=== PATIENT | male | born 1930 | race Caucasian/White ===

== ENCOUNTER → 2016-11-13 | Day surgery (SDC) | payer OTHER ==
[~2016-11-13] VITALS: Ht 167.6 cm; Wt 86.2 kg
[~2016-11-13] MED LIST: ALLOPURINOL 10100 M1 PO; APAP650 PO; ASPIR 8181 MG PO; CENTRUM SILVER1 EAC7 PO; COZAAR 50 MG TA50 M2 PO; EXCEDRIN CAPLE1 EACH PO; FISH OIL OMEGA1 EAC2 PO; LOPRESSOR50 MG PO; METFORMIN HCL500 MG PO; NATURAL LUTEIN20 MG PO; NEURONTIN 300300 M1 PO; REQUIP 1 MG TABL1 M1 PO; SELENIMIN200 MCG PO; SIMVASTATIN PO; STOOL SOFTENER100 M1 PO; VITAMIN D2000 UNIT PO; ZANTAC 150MG T150 MG PO
--- NOTE | ~2016-11-13 | O ---
[facility] [place] [address] OPERATIVE REPORT Name: MONTANA DEWEY Room #: REG [facility] [place] M.R.#: [id number] Admission: 11/13/16 Attend Phys: Iain Campbell MD Discharge: Date of : 34 Report #: [id number] THIS REPORT FOR: //name// CC: Hugo Campbell DATE OF SERVICE: 11/13/2016 PUBLIC HOUSING INTERVIEWER: None. PREOPERATIVE DIAGNOSIS: Bilateral upper lid ptosis with superior visual field defects both eyes. POSTOPERATIVE DIAGNOSIS: Bilateral upper lid ptosis with superior visual field defects both eyes. OPERATION PERFORMED: Bilateral upper lid functional ptosis repair. PUBLIC HOUSING INTERVIEWER: None. ANESTHESIA: Local with IV sedation. COMPLICATIONS: None. 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 Visual field testing demonstrates dense superior visual defects. Retesting with the upper lid elevated shows an improvement in visual field loss of over 30% and in excess of 12 degrees. The current procedure is being undertaken in order to improve the patient's visual function. Informed consent was obtained to include but not limited to the risk of loss of vision, bleeding, infection, scarring, failure to improve the problem and need for further surgery, such as adjustment of lid height. DESCRIPTION OF PROCEDURE: The patient was taken to the operating room, where 2% Xylocaine with epinephrine mixed with equal parts of 0.75% Marcaine with Wydase was administered transcutaneously to each upper lid. The patient was then prepped and draped in the usual sterile fashion. An upper lid crease incision was then made bilaterally and the dissection was carried down until the orbital septum was identified. The orbital septum was then cleared and the preaponeurotic fat identified. The levator aponeurosis was [facility] [address] [place] [address] OPERATIVE REPORT Name: MONTANA DEWEY [id number] Admission: 11/13/16 Attend Phys: Iain Campbell MD Discharge: Date of : 34 Report #: [id number] then disinserted from the anterior surface of the tarsal plate and dissected free in the avascular Blount's muscle plane. The aponeurosis was then advanced and reattached to the anterior surface of the tarsal plate with interrupted mattress 6-0 Novafil sutures on each side, adjusting for height and contour. The redundant aponeurosis was then amputated. The incision was then closed with multiple interrupted 6-0 chromic sutures that were used to recreate an upper lid crease. The skin was closed with a running 6-0 plain gut suture. The wound was then cleaned and dressed with ophthalmic antibiotic ointment followed by a Telfa pad. The patient was transported to the recovery area, having tolerated the procedure well with no anesthesia or operative complications being noted. <ELECTRONICALLY SIGNED> By: Iain Campbell MD 11/20/16 0614 [id number] Iain Campbell MD /[email or web address]
[2016-11-13 11:15] VITALS: BP 1617/0
== END | disposition home or self-care (01) ==
LOC: OR 05:10
DX: H02.403 Unspecified ptosis of bilateral eyelids (principal); H53.462 Homonymous bilateral field defects, left side; H53.461 Homonymous bilateral field defects, right side; G47.33 Obstructive sleep apnea (adult) (pediatric); I10 Essential (primary) hypertension; E78.5 Hyperlipidemia, unspecified; K21.9 Gastro-esophageal reflux disease without esophagitis; E11.9 Type 2 diabetes mellitus without complications; Z98.42 Cataract extraction status, left eye; Z98.41 Cataract extraction status, right eye; Z96.1 Presence of intraocular lens; Z85.828 Personal history of other malignant neoplasm of skin; Z98.890 Other specified postprocedural states
CPT/HCPCS: 50010; 50101; 50386; 50398; 51606; 51636; 56531; 62110; 62850; 70005